=== PATIENT | male | born 1950 | race African-American/Black ===

== ENCOUNTER 2019-06-21 18:11 | Emergency (ER) | payer OTHER ==
[~2019-06-21] VITALS: Ht 152.4 cm; Wt 147.4 kg
[2019-06-21 18:47] LABS: ABSOLUTE NEUTROPHILS 7.7 thou/uL (1.4-8.2); BASOPHILS 1.3 % (0.0-2.0); EOSINOPHILS 2.1 % (0.0-3.0); HEMATOCRIT 33.3 % (42.0-52.0); HEMOGLOBIN 10.5 gm/dL (14.0-18.0); LYMPHOCYTES 22.2 % (24.0-44.0); MCH 26.8 pg (26.0-34.0); MCHC 31.6 g/dL (28.0-37.0); MCV 84.9 fL (80.0-100.0); MONOCYTES 7.4 % (1.0-8.0); RBC 3.92 mil/uL (4.50-6.00); RDW 17.1 % (10.5-14.5); WBC 11.5 thou/uL (4.0-11.0)
[2019-06-21 18:56] LABS: ANION GAP 8 mmol/L (7-16); BUN 8 mg/dL (7-18); CALCIUM 9.6 mg/dL (8.5-10.1); CHLORIDE 101 mmol/L (98-107); CO2 28 mmol/L (21-32); CREATININE 1.1 mg/dL (0.7-1.3); GLUCOSE 288 mg/dL (74-106); SODIUM 137 mmol/L (136-145)
[2019-06-21 19:02] LABS: ALBUMIN 3.1 g/dL (3.4-5.0); DIRECT BILIRUBIN < 0.1 mg/dL (<0.1-0.3); SALICYLATE < 2.8 mg/dL (2.8-20.0); SGOT 40 U/L (15-37); SGPT 20 U/L (30-65); TOTAL BILIRUBIN 0.5 mg/dL (<0.1-1.0); TOTAL PROTEIN 8.5 g/dL (6.4-8.2)
[2019-06-21 19:03] LABS: POTASSIUM 5.1 mmol/L (3.5-5.1)
[2019-06-21 19:17] LABS: PLATELET COUNT 375 thou/uL (150-400)
[2019-06-21 19:26] LABS: URINE BILIRUBIN NEGATIVE (Negative); URINE BLOOD NEGATIVE (Negative); URINE CLARITY SL CLOUDY; URINE COLOR YELLOW; URINE GLUCOSE-RANDOM* TRACE (Negative); URINE KETONES NEGATIVE (Negative); URINE NITRITE-REFLEX NEGATIVE (Negative); URINE PROTEIN (DIPSTICK) 1+ (Negative); URINE SPECIFIC GRAVITY 1.015 (1.005-1.035)
[2019-06-21 19:28] LABS: AMP/METHAMP Negative (Negative); BARBITURATES Negative (Negative); BENZODIAZEPINES Negative (Negative); COCAINE Negative (Negative); METHADONE Negative (Negative); OPIATES Negative (Negative); PCP Negative (Negative)
[2019-06-21 19:29] LABS: URINE LEUKOCYTES-REFLEX 2+ (Negative)
[2019-06-21 19:42] LABS: AMORPHOUS PHOSPHATES Moderate /LPF (None Seen); BACTERIA-REFLEX 1-9 Few /HPF (None Seen); CASTS None Seen /LPF (None Seen); CRYSTALS None Seen /LPF (None Seen); SQUAMOUS None Seen /LPF (0-3); URINE RBC None Seen /HPF (0-2)
[2019-06-21] MEDS ORDERED: KEFLEX500 M1 PO (20:19)
[2019-06-21 22:19] VITALS: BP 205/64
--- NOTE | 2019-06-23 12:16 | EKG ---
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
== END 2019-06-21 22:44 ==
LOC: ER 18:11
PROVIDERS: Emergency Medicine
DX: N39.0 Urinary tract infection, site not specified (principal); M79.605 Pain in left leg; M79.604 Pain in right leg; G89.29 Other chronic pain; I11.9 Hypertensive heart disease without heart failure; E11.40 Type 2 diabetes mellitus with diabetic neuropathy, unspecified; E78.5 Hyperlipidemia, unspecified; K21.9 Gastro-esophageal reflux disease without esophagitis; M10.9 Gout, unspecified; Z86.711 Personal history of pulmonary embolism; Z89.511 Acquired absence of right leg below knee; Z89.512 Acquired absence of left leg below knee; Z86.73 Personal history of transient ischemic attack (TIA), and cerebral infarction without residual deficits

== ENCOUNTER 2019-07-12 18:39 | Emergency (ER) | payer OTHER ==
[~2019-07-12] VITALS: Ht 177.8 cm; Wt 108.9 kg
[~2019-07-12 18:39] MED LIST: KEFLEX500 M1 PO
[2019-07-12 19:10] LABS: URINE BLOOD 1+ (Negative); URINE CLARITY CLOUDY; URINE COLOR BROWN; URINE GLUCOSE-RANDOM* TRACE (Negative); URINE KETONES TRACE (Negative); URINE PROTEIN (DIPSTICK) 3+ (Negative)
[2019-07-12 19:11] LABS: ICTOTEST (BILI CONFIRMATORY) Negative (Negative); URINE BILIRUBIN NEGATIVE (Negative); URINE LEUKOCYTES-REFLEX 2+ (Negative); URINE NITRITE-REFLEX POSITIVE (Negative)
[2019-07-12 19:19] LABS: AMORPHOUS PHOSPHATES Many /LPF (None Seen); CASTS None Seen /LPF (None Seen); SQUAMOUS None Seen /LPF (0-3); URINE RBC 3-10 Few /HPF (0-2); URINE WBC-REFLEX 6-15 Few /HPF (0-5)
[2019-07-12] MEDS ORDERED: AGGRENOX 25 MG1 EACH PO (21:25)
[2019-07-12] MEDS ORDERED: PROAIR HFA8.5 GM INH (21:26)
[2019-07-12] MEDS ORDERED: VITAMIN C500 M2 PO (21:27)
[2019-07-12] MEDS ORDERED: NORVASC10 MG PO (21:27)
[2019-07-12] MEDS ORDERED: CALMOSEPTINE O3.5 GM TOP (21:28)
[2019-07-12] MEDS ORDERED: COLACE100 MG PO (21:29)
[2019-07-12] MEDS ORDERED: CELEXA 10 MG TA10 M1 PO (21:29)
[2019-07-12] MEDS ORDERED: CARVEDILOL25 MG PO (21:29)
[2019-07-12] MEDS ORDERED: OXYCODONE HCL E10 MG PO (21:30)
[2019-07-12] MEDS ORDERED: VITAMIN B-6100 MG PO (21:31)
[2019-07-12] MEDS ORDERED: CRESTOR40 MG PO (21:32)
[2019-07-12] MEDS ORDERED: FLOMAX0.4 MG PO (21:33)
[2019-07-12] MEDS ORDERED: SENNA PLUS TAB1 EACH PO (21:33)
[2019-07-12] MEDS ORDERED: THROAT DROPS6 MG PO (21:34)
[2019-07-12] MEDS ORDERED: UNICOMPLEX M TA1 TA1 PO (21:36)
[2019-07-12] MEDS ORDERED: XALATAN2.5 ML OPHTHALMIC (21:36)
[2019-07-12] MEDS ORDERED: TYLENOL PO (21:36)
[2019-07-12] MEDS ORDERED: COSOPT OCUMETER10 M1 OPHTHALMIC (21:38)
[2019-07-12] MEDS ORDERED: CYMBALTA60 MG PO (21:38)
[2019-07-12] MEDS ORDERED: ARICEPT10 M1 PO (21:39)
[2019-07-12] MEDS ORDERED: PROSCAR 5MG TABL5 M1 PO (21:39)
[2019-07-12] MEDS ORDERED: ERGOCALCIF50000 UNIT PO (21:39)
[2019-07-12] MEDS ORDERED: LEVEMIR100 UNIT/2 SUBQ (21:41)
[2019-07-12] MEDS ORDERED: LACTULOSE10 GM/152 PO (21:41)
[2019-07-12] MEDS ORDERED: LIDOCAINE GEL TOP (21:44)
[2019-07-12] MEDS ORDERED: LINZESS145 MCG PO (21:45)
[2019-07-12] MEDS ORDERED: ZESTRIL40 MG PO (21:45)
[2019-07-12] MEDS ORDERED: LYRICA 75 MG CA75 MG PO (21:46)
[2019-07-12] MEDS ORDERED: MELATONIN5 MG SUBLING (21:46)
[2019-07-12] MEDS ORDERED: NOVOLOG100 UNIT/M SUBQ (21:47)
[2019-07-12] MEDS ORDERED: MULTIPLE VITAM1 EAC2 PO (21:47)
[2019-07-12] MEDS ORDERED: KEFLEX500 M1 PO (22:47)
[2019-07-13 00:20] VITALS: BP 160/60
== END 2019-07-12 23:05 | disposition home or self-care (01) ==
LOC: ER 18:39
PROVIDERS: Emergency Medicine
DX: N47.2 Paraphimosis (principal); E11.9 Type 2 diabetes mellitus without complications; M10.9 Gout, unspecified; E78.5 Hyperlipidemia, unspecified; E11.40 Type 2 diabetes mellitus with diabetic neuropathy, unspecified; Z86.711 Personal history of pulmonary embolism; Z86.73 Personal history of transient ischemic attack (TIA), and cerebral infarction without residual deficits; Z79.4 Long term (current) use of insulin; Z79.899 Other long term (current) drug therapy; Z79.82 Long term (current) use of aspirin

== ENCOUNTER 2019-08-30 10:20 | Inpatient (IN) | payer OTHER ==
[~2019-08-30] VITALS: Ht 162.6 cm; Wt 104.3 kg
[~2019-08-30 10:20] MED LIST changes: +AGGRENOX 25 MG1 EACH PO; +ARICEPT10 M1 PO; +CALMOSEPTINE O3.5 GM TOP; +CARVEDILOL25 MG PO; +CELEXA 10 MG TA10 M1 PO; +COLACE100 MG PO; +COSOPT OCUMETER10 M1 OPHTHALMIC; +CRESTOR40 MG PO; +CYMBALTA60 MG PO; +ERGOCALCIF50000 UNIT PO; +FLOMAX0.4 MG PO; +LACTULOSE10 GM/152 PO; +LEVEMIR100 UNIT/2 SUBQ; +LIDOCAINE GEL TOP; +LINZESS145 MCG PO; +LYRICA 75 MG CA75 MG PO; +MELATONIN5 MG PO; +MULTIPLE VITAM1 EAC2 PO; +NORVASC10 MG PO; +NOVOLOG100 UNIT/M SUBQ; +OXYCODONE HCL E10 MG PO; +PROAIR HFA8.5 GM INH; +PROSCAR 5MG TABL5 M1 PO; +SENNA PLUS TAB1 EACH PO; +THROAT DROPS6 MG PO; +TYLENOL PO; +UNICOMPLEX M TA1 TA1 PO; +VITAMIN B-6100 MG PO; +VITAMIN C500 M2 PO; +XALATAN2.5 ML OPHTHALMIC; +ZESTRIL40 MG PO
[2019-08-30 10:22] VITALS: BP 136/67
[2019-08-30 10:58] LABS: ABSOLUTE NEUTROPHILS 3.9 thou/uL (1.4-8.2); BASOPHILS 0.6 % (0.0-2.0); EOSINOPHILS 4.4 % (0.0-3.0); HEMATOCRIT 37.1 % (42.0-52.0); HEMOGLOBIN 11.5 gm/dL (14.0-18.0); LYMPHOCYTES 33.7 % (24.0-44.0); MCH 24.9 pg (26.0-34.0); MCV 80.3 fL (80.0-100.0); MONOCYTES 8.9 % (1.0-8.0); PLATELET COUNT 279 thou/uL (150-400); POLYS 52.4 % (36.0-66.0); RBC 4.62 mil/uL (4.50-6.00); RDW 16.7 % (10.5-14.5); WBC 7.5 thou/uL (4.0-11.0)
[2019-08-30 11:06] LABS: CALCIUM 8.9 mg/dL (8.5-10.1); CREATININE 1.2 mg/dL (0.7-1.3); POTASSIUM 3.3 mmol/L (3.5-5.1)
[2019-08-30 11:12] LABS: ALBUMIN 2.9 g/dL (3.4-5.0); TOTAL BILIRUBIN 0.3 mg/dL (<0.1-1.0); TOTAL PROTEIN 7.8 g/dL (6.4-8.2)
[2019-08-30 12:20] LABS: URINE BILIRUBIN NEGATIVE (Negative); URINE BLOOD NEGATIVE (Negative); URINE CLARITY CLEAR; URINE COLOR YELLOW; URINE GLUCOSE-RANDOM* 1+ (Negative); URINE KETONES NEGATIVE (Negative); URINE LEUKOCYTES-REFLEX NEGATIVE (Negative); URINE NITRITE-REFLEX NEGATIVE (Negative); URINE PROTEIN (DIPSTICK) NEGATIVE (Negative); URINE SPECIFIC GRAVITY <= 1.005 (1.005-1.035); URINE UROBILINOGEN 0.2 E.U./dl (0.2-1.0)
[2019-08-30 13:53] VITALS: BP 139/63
[2019-08-30 14:59] VITALS: BP 146/69
[2019-08-30 15:55] VITALS: BP 149/77
--- NOTE | 2019-08-30 18:30 | NUR ---
PT RECEIVED TO RM 458 PER CART FROM THER ER W/ SOME ABD PAIN. PT ASSESSED AND ADMITTED TO UNIT. PT STARTED ON CLEAR LIQUIDS W/O NAUSEA. HAVING LIQUID BROWN STOOLS. CONSULT DONE BY GI BRICK CLEANER SHORTLY AFTER ADMISSION. MEDICINE GIVEN FOR C/O PAIN W/ SOME RELIEF.
[2019-08-31 05:55] LABS: HEMATOCRIT 35.5 % (42.0-52.0); MCH 25.3 pg (26.0-34.0); MCV 81.6 fL (80.0-100.0); RBC 4.34 mil/uL (4.50-6.00); RDW 16.6 % (10.5-14.5); WBC 6.8 thou/uL (4.0-11.0)
--- NOTE | 2019-08-31 06:00 | NUR ---
Pt. rested quietly at intervals during the night when checked on during frequent rounds. He c/o abdominal pain and was given pain meds (see emar) with some relief noted. No c/o nausea. Bed alarm is on.
[2019-08-31 06:06] LABS: CALCIUM 8.3 mg/dL (8.5-10.1)
[2019-08-31 07:45] VITALS: BP 132/62
[2019-08-31 11:49] VITALS: BP 142/63
[2019-08-31 16:30] VITALS: BP 115/67
[2019-08-31 17:00] VITALS: BP 137/71
--- NOTE | 2019-08-31 17:01 | NUR ---
Assumed pt care this am, abdomen is significantly distended. KUB done this am, seen by GI, goal is to have a bm myralax and suppository given. Consent for colonoscopy done, aware to be NPO post midnight tonight.l ON full liquid diet from clears, tolerated well. Bed bath given this am. Colonoscopy perep endorsed to the SS nurse pt was mo0ved to 405. POC followed, VS stable no signs or verbalizations of distress have been noted. Pt is now is 405
--- NOTE | 2019-08-31 18:19 | NUR ---
Case opened to follow for dc planning. Chart reviewed and case discussed with the care team. 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 He is a bilat amputee and is w/c bound. He is his own reponsible alliance party. Next of kin contacts are his brother and dtr if needed. The [place] liason confirmed they are holding his bed and can accept for readmission when ready. Pt transfered to 4N this afternoon. GI consulting for colitis. Will have the dc supply planner fax his H/P and updated tomorrow. DC timeframe is uncertain pending his progress. [facility] staff updated. Cm role introduced to the pt at bedside.
--- NOTE | 2019-08-31 19:13 | NUR ---
PT ARRIVED ON UNIT, AOX4, VSS. PT TOLERATING LIQUID, ENCOURAGED TO DRINK MIRALAX. PT IV IN RIGHT AC IS PATENT WITH FLUIDS RUNNING. FALL PRECAUTIONS IN PLACE, CALL LIGHT/PERSONAL BELONGINGS IN REACH. WILL CONTINUE TO MONITOR.
[2019-08-31 19:51] VITALS: BP 146/72
[2019-08-31 20:37] VITALS: BP 146/72
--- NOTE | 2019-09-01 04:48 | NUR ---
ASSUMED CARE OF PATIENT AT SHIFT CHANGE. ASSESSMENT CHARTED. MEDICATIONS GIVEN PER OCT. PATIENT IS A&OX4, VSS, BUT C/O PAIN ON HIS ABDOMEN AND LEGS AT 10/10. PRN PAIN MEDS GIVEN W ASSIST FROM MARILU WAN. ABDOMEN STILL DISTENDED AND BOWEL SOUNDS ARE HYPERACTIVE; CURRENTLY DRINKING MIRALAX BOWEL PREP. PATIENT ON BEDREST THIS NIGHT SINCE HE WILL BE HAVING MANY BOWEL MOVEMENTS; LOGROLLS AND HELPS WITH TURNING. PATIENT SEEMS A BIT UPSET FOR HAVING TO BE NPO AFTER MIDNINGT BUT IS COMPLIANT. PATIENT IS TO HAVE A COLONOSCOPY THIS AM 09/01/19. PATIENTS PAIN LEVEL IS FREQUENTLY MONITORED. DENIES ANY OTHER NEEDS AT THIS TIME. FALL PRECAUTIONS IN PLACE, WILL CONTINUE TO MONITOR AND FOLLOW POC
[2019-09-01 06:02] LABS: HEMATOCRIT 33.8 % (42.0-52.0); HEMOGLOBIN 10.3 gm/dL (14.0-18.0); MCH 25.2 pg (26.0-34.0); MCHC 30.6 g/dL (28.0-37.0); MCV 82.3 fL (80.0-100.0); RBC 4.11 mil/uL (4.50-6.00); RDW 16.6 % (10.5-14.5); WBC 6.6 thou/uL (4.0-11.0)
[2019-09-01 06:19] LABS: CALCIUM 8.1 mg/dL (8.5-10.1); CREATININE 0.9 mg/dL (0.7-1.3); POTASSIUM 3.6 mmol/L (3.5-5.1)
[2019-09-01 07:42] VITALS: BP 157/68
--- NOTE | 2019-09-01 12:54 | NUR ---
FAXED CLINICAL UPDATES TO [facility] [phone]; [phone]. NOTED THAT POSSIBLE DC THIS WEEKEND. WILL FOLLOW UP WITH DIANNA THAT SHE RECEIVED.
[2019-09-01 16:04] VITALS: BP 192/88
--- NOTE | 2019-09-01 17:32 | NUR ---
If patient to dc this weekend to facility to call [phone] to [facility]. Call family, make chart copy fax orders to [phone].
[2019-09-01 18:52] VITALS: BP 164/74
--- NOTE | 2019-09-01 19:53 | NUR ---
ASSUMED CARE OF PATIENT AT 0715, PATIENT ALERT AND ORIENTED X 4. PATIENT ON BEDREST, ANGEL. BKA'S. TURN Q2HRS, SLIGHT REDNESS TO LEFT BUTTOCKS. C/O ABDOMEN PAIN, MORPHINE 2MG IV AND OXYCONTIN 10 MG PO GIVEN. NO C/O NAUSEA THIS SHIFT. PATIENT WAS NPO MOST OF SHIFT FOR COLONOSCOPY, DR BLOOD HERE THIS AFTERNOON, CHANGED FROM NPO TO FULL LIQUIDS FOR DINNER. PAIENT WENT DOWN FOR KUB, STOOL STILL NOTED. RIGHT AC IV IN PLACE, NS AT 75CC/HR, RECEIVED 2 IV ANTIBIOTICS THIS SHIFT. PATIENT HAD 4 LARGE LOOSE STOOLS THIS SHIFT. BLOOD SUGAR MONITORING ORDERED, S/S INSULIN GIVEN PER BLOOD SUGAR. COLONOSCOPY SCHEDULED FOR WEDNESDAY. WILL CONTINUE TO MONITOR.
[2019-09-01 22:12] VITALS: BP 135/56
--- NOTE | 2019-09-02 02:04 | NUR ---
ASSUMED CARE OF PATIENT AT APPROX. 1945. ASSESSMENT CHARTED. MEDICATIONS GIVEN PER EMAR. PATIENT IS A&OX4. VITAL SIGNS ARE STABLE; EARLIER TODAY BP WAS ELEVATED HOWEVER IT IS STABLE AGAIN. PATIENT VOICES PAIN 10/10 ON ABDOMEN; PRN PAIN MEDS WERE GIVEN WITH ASSIST FROM TERRI MICHEL. PATIENT IS A BILATERAL AMPUTEE AND IS ON BEDREST WE DO NOT HAVE A SLIDING BOARD. PATIENT HAS BEEN USING URINAL TO VOID AND IS INCONTINENT OF BOWELS. PATIENT HAD A BOWEL PREP ON 08/31 AND CONTINUES TO HAVE BROWN, LOOSE STOOLS. KUB RESULTS SUGGESTED POSTPONING COLONOSCOPY TO MONDAY 09/04. PATIENT HAS SOME EXCORIATION ON HIS RIGHT BUTTOCK; BARRIER CREAM APPLIED NEEDED. PATIENT IS BEING TURNED Q2HRS. PATIENTS DIET ORDER IS UNCLEAR; NPO STATUS ORDER ACTIVE NOW; CLEAR LIQUIDS ACTIVE ON 09/03. FALL PRECAUTIONS IN PLACE. WILL CONTINUE TO MONITOR AND FOLLOW PLAN OF CARE
--- NOTE | 2019-09-02 04:29 | NUR ---
THIS NURSE AGREES WITH ASSESSMENT AND NOTES ON THIS PATIENT BY TEXTILE DYER. PATIENT WILL BE ON FULL LIQUID DIET THIS WEEKEND WITH COLONOSCOPY ON WEDNESDAY. PER DR. BLOOD.
[2019-09-02 07:10] VITALS: BP 183/82
[2019-09-02 10:44] VITALS: BP 149/81
--- NOTE | 2019-09-02 12:00 | NUR ---
SW reviewed chart and spoke with nursing. No weekend discharge planned. Pt to have colonoscopy on Wednesday. Plan is for pt to return to [facility] when medically stable. KAYLIE is following to assist as needed with discharge planning.
[2019-09-02 15:55] VITALS: BP 128/62
--- NOTE | 2019-09-02 17:23 | NUR ---
PT IS AOX4, VSS, PAIN ANALGESIC GIVEN SCHEDULED FOR GENERALIZED ABDOMINAL PAIN. PT TOLERATING CLEAR LIQUID DIET, IV PATENT WITH FLUIDS RUNNING, BARRIER CREAM APPLIED TO EXCORIATION ON RIGHT SIDE OF BUTTOCK. PT TURNED Q 2HR. BS MONITORED AC/HS AND S/S INSULIN RECEIVED ORDERED. FALL PRECAUTIONS IN PLACE/CALL LIGHT/PERSONAL ITEMS IN REACH. WILL CONTINUE TO MONITOR.
[2019-09-02 21:00] VITALS: BP 134/68
--- NOTE | 2019-09-03 03:29 | NUR ---
ASSUMED CARE OF PATIENT AT SHIFT CHANGE. ASSESSMENT CHARTED. MEDICATIONS GIVEN PER EMAR. PATIENT IS A&OX4 BUT TIRED TODAY. HE IS IN AND OUT OF SLEEP BUT ALERT ENOUGH TO TAKE HIS MEDS AND VOICE PAIN. VITAL SIGNS ARE STABLE. PATIENT VOICES PAIN 10/10 ON THE NUMERIC SCALE. DAY RN REPORTS HIS PAIN HAS NOT GONE BELOW A 9/10. PATIENTS ABDOMEN IS STILL DISTENDED BUT LESS THAN LAST NIGHT. PATIENT HAD A BM DURING THE DAY BUT IS YET TO HAVE ONE TONIGHT. BOWEL SOUNDS REMAIN ACTIVE. PATIENT DID REFUSE HIS MIRALAX AGAIN BECAUSE OF LOOSE STOOLS EARLIER DURING THE DAY. ABX THX AND FLUIDS RUNNING THIS SHIFT; IV INTACT AND PATENT. PATIENT IS TO BE TURNED Q2 HRS BUT STATES TOO MUCH PAIN TO BE TURNED THAT OFTEN. PATIENT REMAINS AFEBRILE W NO S/S OF INFECTION. FALL PRECAUTIONS REMAIN IN PLACE AND PATIENT CALLS OUT APPROPRIATELY. PLAN IS FOR BOWEL PREP STARTING LATER TODAY 09/03 AND COLONOSCOPY ON 09/04; CURRENTLY ON CLEAR LIQUIDS. WILL CONTINUE TO MONITOR AND FOLLOW PLAN OF CARE.
[2019-09-03 05:02] LABS: HEMATOCRIT 37.4 % (42.0-52.0); HEMOGLOBIN 11.8 gm/dL (14.0-18.0); MCH 25.3 pg (26.0-34.0); MCHC 31.4 g/dL (28.0-37.0); MCV 80.7 fL (80.0-100.0); RBC 4.64 mil/uL (4.50-6.00); RDW 16.8 % (10.5-14.5); WBC 6.8 thou/uL (4.0-11.0)
--- NOTE | 2019-09-03 05:11 | NUR ---
THIS NURSE AGREES WITH ASSESSMENT AND NOTES BY PRESIDING STEWARD ON THIS PATIENT.
[2019-09-03 05:16] LABS: CALCIUM 8.8 mg/dL (8.5-10.1); CREATININE 0.9 mg/dL (0.7-1.3); POTASSIUM 3.2 mmol/L (3.5-5.1)
[2019-09-03 07:18] VITALS: BP 163/72
[2019-09-03 14:41] VITALS: BP 140/55
--- NOTE | 2019-09-03 18:41 | NUR ---
PT ASSESSED AT START OF SHIFT. PLAN FOR COLONOSCOPY WEDNESDAY. HAS BEEN HAVING THICK BROWN STOOL THIS AFTERNOON. MIRALAX BOWEL PREP IN PROGRESS. PT EXPRESSING DESIRE TO WEAN OFF PAIN MED TO HELP HIS BOWELS. HE REFUSED HIS AFTERNOON DOSE OF OXYCONTIN.
[2019-09-03 20:10] VITALS: BP 160/73
--- NOTE | 2019-09-04 04:29 | NUR ---
PATIENT ALERT AND ORIENTED X4 WITH SOME FORGETFULNESS. COOPERATIVE WITH CARE. INCONTINENT OF BOWEL AND VOIDING PER URINAL. PATIENT HAS BEEN NPO SINCE 09/03/2019 AT 2359 FOR COLONOSCOPY TODAY. PATIENT DRANK ALL OF HIS PREP DRINK AND HAS HAD SEVERAL STOOLS - RUNNING VERY LIGHT BROWN LIQUID STOOL THAT SHOULD BE SUFFICIENT FOR COLONOSCOPY. IVF INFUSING W/O COMPLICATION. SCHEDULED PAIN MEDICATION GIVEN. RESTING QUIETLY.
[2019-09-04 08:31] VITALS: BP 154/70
--- NOTE | 2019-09-04 11:54 | NUR ---
SW reviewed chart and spoke with nursing and attending physician. Pt is currently off the unit having colonoscopy. Plan is for pt to discharge back to [facility] when medically stable. SW updated [place] post-acute liaison. Clinical updates to be faxed to facility for review. KAYLIE is following to assist as needed with discharge planning.
[2019-09-04 17:30] VITALS: BP 146/70
--- NOTE | 2019-09-04 19:48 | NUR ---
PT WENT FOR COLONOSCOPY AND HAD 2 POLYPS REMOVED...NO STOOLS THIS SHIFT...PLANS TO D/C TOMORROW
[2019-09-04 20:29] VITALS: BP 145/68
--- NOTE | 2019-09-05 05:04 | NUR ---
ASSUMED PT CARE APPROXIMATELY 191. PT IS ALERT AND ORIENTED. PT HAS A RIGHT AC, NORMAL SALINE RUNNING AT 75 MLS / HR. PT REFUSED THE DOCUSATE SENNA, POLYETHYLENE GLYCOL AND THE OCYCONTIN. PT STATES THAT HE DOES NOT WANT ANYTHING THAT WILL MAKE HIM HACE A BOWEL MOVEMENT. PT ANSWERS EVERYTHING WITH SHORT ANSWERS. PT WAKES UP EVERY TIME I CHECK IN ON HIM. PT SEEMS RESTLESS. WILL CONTINUE TO MONITOR.
[2019-09-05 07:25] VITALS: BP 187/71
[2019-09-05 09:43] VITALS: BP 187/71
[2019-09-05] MEDS ORDERED: FLAGYL500 M1 PO (13:53)
[2019-09-05] MEDS ORDERED: CIPRO500 M1 PO (13:54)
--- NOTE | 2019-09-05 14:15 | NUR ---
DISCHARGE NOTE: KAYLIE reviewed chart and spoke with nursing and attending physician. Pt is medically stable to return to [facility] today. Pt will return using his skilled benefit. SW notified [place] post-acute liaison, who states that they are able to accept pt back. Transportation scheduled for 2645-1505 per facility's arrangements. KAYLIE met with pt at bedside to provide update. Pt is aware and in agreement with discharge plan. Chart copy ordered. Nursing to call report. No additional SW needs identified at this time, but is available to assist should needs arise. [facility]--
--- NOTE | 2019-09-05 15:30 | NUR ---
DISCHARGE ORDERS COMPLETED AND FAXED TO [facility] ADMISSIONS. CALL RECEIVED FROM MONICA ORTA, PEARL PELLER. [facility]SP[facility] ARRANGED FOR 1630 HOURS. CHART COPY COMPLETED. UNIT RN NOTIFIED.
--- NOTE | 2019-09-05 15:41 | NUR ---
ASSUMED CARE OF THE PATIENT AT 0715, PATIENT ALERT AND ORIENTED X 4. PATIENT ON BEDREST, BILATERAL BKA'S. TURN EVERY 2 HOURS. PATIENT INCONT. OS STOOL, BARRIER CREAM APPLIED TO BUTTOCKS. VOIDS PER URINAL. RIGHT AC IV WITH NS AT 75CC/HR. BLOOD SUGAR AT LUNCH 179, RECEIVED 3 UNITS OF LISPRO. RIGHT SLIGHTLY SWOLLEN, THIS RN NOTIFIED DR KRYSTLE GUARDADO TO STOP IV FLUIDS. PATIENT WILL DISCHARGE BACK TO [facility] THIS AFTERNOON. RIGHT AC IV REMOVED PRIOR TO DISCHARGE. PATIENT REFUSED OXYCONTIN THIS AFTERNOON. TRANSPORT HERE WITH [facility]. SECURITY CALLED PATIENT HAD MONEY GIVEN TO THEM AT ADMISSION/40 DOLLARS. ALL DISCHARGE PAPERWORK AND ALL PERSONAL BELONGINGS SENT WITH THE PATIENT. REPORT GIVEN TO EMILY/NATHAN.
--- NOTE | 2019-09-05 16:06 | PATH ---
[facility] [address] [place] [address] PATHOLOGY RPT PROCEDURE Name: CANELO FELIX Room #: 405-P DIS IN M.R.#: [id number] Admission: 08/30/19 Date of : 48 Discharge: 09/05/19 Report #: [id number] Path Case #: [id number] [facility] Accession Number: [id number] . 01 Material submitted: . colon - POLYP AT MID ASCENDING COLON X2. Modifiers: mid, ascending . 01 Clinical history: . None provided . 02 Diagnosis: Polyp x2, at mid ascending colon, endoscopic biopsy: - Tubulovillous adenoma. - Negative for high-grade dysplasia. (IUV:pit 09/05/2019) QTP 09/05/2019 1351 Local . 02 Electronically signed: . Tisha Henning MD, Pathologist NPI- [id number] . 01 Gross description: . The specimen is received in formalin, labeled "Canelo Linn, polyp at mid ascending colon x2". Received are seven segments of pale delcid soft tissue ranging in size from 0.2 to 0.7 cm in maximum dimensions. The specimen is submitted entirely in cassette A1. (CAA; 09/04/2019) QAC/QAC 09/04/2019 1728 Local . 02 Pathologist provided ICD-10: D12.2 . 02 CPT . 248085 Specimen Comment: A courtesy copy of this report has been sent to [phone], [phone]- Specimen Comment: [phone], Specimen Comment: Report sent to ,DR ROBERTSON / DR DALTON Performed at: [address], [place] [id number] MD Yunior Nagel MD Phone: [phone] Performed at: [address] [id number] MD Tisha Henning MD Phone: [phone]
--- NOTE | 2019-09-05 16:27 | P ---
[facility] [place] [address] PROCEDURE REPORT Name: DENISE FELIX Room #: 405-P [facility] IN M.R.#: [id number] Admission: 08/30/19 Attend Phys: Brando Valero MD Discharge: 09/05/19 Date of : 48 Report #: [id number] THIS REPORT FOR: //name// CC: Brandon Valero INPATIENT COLONOSCOPY REPORT BRIEF HISTORY: The patient is a 69-year-old male who was admitted with left lower quadrant abdominal pain. CT shows thickening of the sigmoid colon. He also has inflammatory changes in the rectum. PREOPERATIVE DIAGNOSIS: Abnormal CT of the colon. POSTOPERATIVE DIAGNOSES: 1. Mid ascending colon polyps x 2. 2. Retained hemostatic clip, cecum. 3. Mild diffuse melanosis coli. 4. Diffusely dilated redundant colon. MEDICATIONS: Deep sedation with propofol per Anesthesia. SPECIMEN: Polyps x 2, mid ascending colon. ESTIMATED BLOOD LOSS: 3 mL. PROCEDURE: Colonoscopy to cecum and terminal ileum with snare polypectomy. FINDINGS: Prior to propofol sedation, procedure of colonoscopy discussed with the patient as well as potential risks and its complications. He indicates he understands and desires to proceed. DESCRIPTION OF PROCEDURE: With the patient in left lateral decubitus position, digital examination was completed, which revealed no abnormalities. Subsequently, the Monitor Backlinks video colonoscope was introduced in the rectum, advanced under direct vision to the cecum. Done with some difficulty as a tortuous redundant and dilated colon consistent with chronic constipation. The cecum was reached, identified by the ileocecal valve and the appendiceal orifice. I was also able to advance the scope into the distal segment of terminal ileum, which was inspected and noted to be unremarkable. No inflammatory changes were seen. At that point, the scope was slowly withdrawn and careful circumferential views were obtained. There were some limitations of prep as there was retained liquidy material in the proximal colon, which had to be irrigated and suctioned away. In addition, there was a lot of spasticity and more so that the patient was not able to hold on to air very well and it was difficult to keep a fully distended colon. It was also of interest to note that in the cecum, hemostatic clip was seen, likely placed at his last colonoscopy. The surrounding mucosa [facility] [address] [place] [address] PROCEDURE REPORT Name: DENISE FELIX Room #: 405-P DIS IN M.R.#: [id number] Admission: 08/30/19 Attend Phys: Brando Valero MD Discharge: 09/05/19 Date of : 48 Report #: [id number] was benign. At that point, the scope was slowly withdrawn and careful circumferential views were obtained. In the mid ascending colon, 2 polyps were seen, a diminutive polyp was seen in the mid ascending colon, removed with biopsy forceps. In addition, a fairly flat nodular-appearing polypoid lesion was seen. It was about 6 x 10 mm, removed by hot snare polypectomy and recovered. The scope was withdrawn through the remainder of the colon and he was noted to have a pattern of mild melanosis throughout the entire colon. It is noted he does have issues with chronic constipation. No additional abnormalities were noted. Scope was withdrawn in the rectum, no abnormalities were seen. Upon retroflexion, no abnormalities were seen. Scope was withdrawn. The patient tolerated the procedure well. DISPOSITION: The patient with thickening of the sigmoid colon on CT. Other than mild melanosis, the colonic mucosa appears normal. No inflammatory changes were seen. No mass lesions were seen. We will follow up on the pathology. The polyps have an adenomatous appearance. For that reason as well as some limitations with prep and procedure in particular related to difficulty keeping the colon distended, suggest he return in 3 years for followup colonoscopy. As for the CT abnormalities, no lesions were found to explain the CT findings. <ELECTRONICALLY SIGNED> By: Mauro Garrido MD 09/05/19 1627 0953 1142 Mauro Garrido MD /nt
== END 2019-09-05 16:04 | DRG 372 ==
LOC: ER 10:20 → 4W 12:43 → EROBS 12:43 → 4W 14:59 → 4N 08-31 17:07
PROVIDERS: Emergency Medicine; ADMIT Hospitalist
PROC: 0DBK8ZZ Excision of Ascending Colon, Via Natural or Artificial Opening Endoscopic (ICD-10-PCS; principal; 2019-09-04)
DX: A04.9 Bacterial intestinal infection, unspecified (principal); E46 Unspecified protein-calorie malnutrition; K57.92 Diverticulitis of intestine, part unspecified, without perforation or abscess without bleeding; K59.39 Other megacolon; N40.0 Benign prostatic hyperplasia without lower urinary tract symptoms; G30.9 Alzheimer's disease, unspecified; M10.9 Gout, unspecified; F02.80 Dementia in other diseases classified elsewhere, unspecified severity, without behavioral disturbance, psychotic disturbance, mood disturbance, and anxiety; I10 Essential (primary) hypertension; J44.9 Chronic obstructive pulmonary disease, unspecified; E11.51 Type 2 diabetes mellitus with diabetic peripheral angiopathy without gangrene; K59.09 Other constipation; E11.43 Type 2 diabetes mellitus with diabetic autonomic (poly)neuropathy; K63.5 Polyp of colon; K31.84 Gastroparesis; G47.00 Insomnia, unspecified; E11.42 Type 2 diabetes mellitus with diabetic polyneuropathy; I25.10 Atherosclerotic heart disease of native coronary artery without angina pectoris; E78.5 Hyperlipidemia, unspecified; Z86.73 Personal history of transient ischemic attack (TIA), and cerebral infarction without residual deficits; Z79.82 Long term (current) use of aspirin; Z79.51 Long term (current) use of inhaled steroids; Z79.899 Other long term (current) drug therapy; Z79.4 Long term (current) use of insulin; Z86.711 Personal history of pulmonary embolism; Z68.39 Body mass index [BMI] 39.0-39.9, adult; Z89.512 Acquired absence of left leg below knee; Z89.611 Acquired absence of right leg above knee; Z99.3 Dependence on wheelchair; I48.91 Unspecified atrial fibrillation
CPT/HCPCS: 10040; 10091; 62110; 62900; 70005

== ENCOUNTER 2019-09-15 15:04 | Inpatient (IN) | payer OTHER ==
[~2019-09-15] VITALS: Ht 177.8 cm; Wt 94.9 kg
--- NOTE | ~2019-09-15 | EKG ---
[facility] [place] [address] ELECTROCARDIOGRAM REPORT Name: DENISE FELIX Room #: PRE M.R.#: [id number] Admission: Attend Phys: Discharge: Date of : 48 Report #: [id number] THIS REPORT FOR: cc: Brandon Montiel James D. 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 : 1950 Requested By: John uAgustin Order Number: [id number] MD: Measurements Intervals [place] Rate: 77 P: 74 OH: 220 QRS: -20 QRSD: 95 T: 79 QT: 400 QTc: 453 Interpretive Statements Sinus rhythm Prolonged OH interval Left ventricular hypertrophy Inferior infarct, old Anterior Q waves, possibly due to LVH Compared to ECG 06/21/2019 18:48:14 First degree AV block now present Myocardial infarct finding now present Q waves now present Early repolarization no longer present [email or web address] By: 1544 1544 Epiphany Epiphany, [place] /EPI
[2019-09-15 15:04] VITALS: BP 133/52
[~2019-09-15 15:04] MED LIST changes: +CIPRO500 M1 PO; +FLAGYL500 M1 PO
[2019-09-15 15:45] LABS: ABSOLUTE NEUTROPHILS 6.5 thou/uL (1.4-8.2); BASOPHILS 0.7 % (0.0-2.0); EOSINOPHILS 2.3 % (0.0-3.0); HEMATOCRIT 35.8 % (42.0-52.0); HEMOGLOBIN 11.3 gm/dL (14.0-18.0); LYMPHOCYTES 26.6 % (24.0-44.0); MCH 25.2 pg (26.0-34.0); MCHC 31.7 g/dL (28.0-37.0); MCV 79.4 fL (80.0-100.0); MONOCYTES 9.9 % (1.0-8.0); PLATELET COUNT 364 thou/uL (150-400); POLYS 60.5 % (36.0-66.0); RBC 4.51 mil/uL (4.50-6.00); RDW 17.4 % (10.5-14.5); WBC 10.7 thou/uL (4.0-11.0)
[2019-09-15 15:47] LABS: CALCIUM 8.8 mg/dL (8.5-10.1); CREATININE 2.2 mg/dL (0.7-1.3); POTASSIUM 3.8 mmol/L (3.5-5.1)
[2019-09-15 15:51] LABS: ALBUMIN 3.2 g/dL (3.4-5.0); TOTAL BILIRUBIN 0.5 mg/dL (<0.1-1.0); TOTAL PROTEIN 8.4 g/dL (6.4-8.2)
[2019-09-15 17:26] LABS: URINE BILIRUBIN NEGATIVE (Negative); URINE BLOOD 2+ (Negative); URINE CLARITY CLEAR; URINE COLOR YELLOW; URINE GLUCOSE-RANDOM* NEGATIVE (Negative); URINE KETONES NEGATIVE (Negative); URINE LEUKOCYTES-REFLEX NEGATIVE (Negative); URINE NITRITE-REFLEX NEGATIVE (Negative); URINE PROTEIN (DIPSTICK) NEGATIVE (Negative); URINE UROBILINOGEN 0.2 E.U./dl (0.2-1.0)
[2019-09-15 17:40] LABS: MUCUS 4-6 Moderate strn/LPF (None Seen); SQUAMOUS >10 Many /LPF (0-3)
[2019-09-15 17:41] LABS: CASTS None Seen /LPF (None Seen)
[2019-09-15 17:42] LABS: URINE WBC-REFLEX 0-5 Rare /HPF (0-5)
[2019-09-15 17:43] LABS: BACTERIA-REFLEX 1-9 Few /HPF (None Seen); URINE RBC 3-10 Few /HPF (0-2)
[2019-09-15 17:50] LABS: CALCIUM OXALATE 0-3 Few /LPF (None Seen)
[2019-09-15 20:41] VITALS: BP 140/98
[2019-09-15 20:42] VITALS: BP 140/98
--- NOTE | 2019-09-15 20:42 | NUR ---
HAND OFF TOOL SENT TO 3W
[2019-09-15 20:57] VITALS: BP 125/59; BP 140/98
[2019-09-15 21:30] VITALS: BP 177/81
[2019-09-16 00:05] VITALS: BP 169/83
[2019-09-16 04:10] VITALS: BP 157/77
--- NOTE | 2019-09-16 05:20 | NUR ---
RECEIVED REPORT FROM ER NURSE. PT ARRIVED TO UNIT AROUND 2119. ADMISSION HX AND ASSESSMENT COMPLETED CHARTED. NIH Q4H. PT IS UNABLE TO CORRECTLY STATE THE MONTH AND HAS SOME CONFUSION. HE HAS MILD EXPRESSIVE APHASIA BUT SPEECH IS CLEAR. Q2H TURN TO PREVENT SKIN BREAKDOWN. BLANCHABLE REDNESS TO BILATERAL BUTTOCKS - BARRIER CREAM APPLIED. FALL PRECAUTIONS IN PLACE. PROGRESSING SLOWLY TOWARD POC GOALS. WILL CONTINUE TO MONITOR FURTHER.
[2019-09-16 05:38] LABS: HEMATOCRIT 34.5 % (42.0-52.0); HEMOGLOBIN 10.8 gm/dL (14.0-18.0); MCH 25.1 pg (26.0-34.0); MCHC 31.3 g/dL (28.0-37.0); MCV 80.1 fL (80.0-100.0); RBC 4.3 mil/uL (4.50-6.00); RDW 17.6 % (10.5-14.5); WBC 9.6 thou/uL (4.0-11.0)
[2019-09-16 05:57] LABS: BUN 16 mg/dL (7-18); CALCIUM 8.5 mg/dL (8.5-10.1); CHLORIDE 105 mmol/L (98-107); CHOLESTEROL 93 mg/dL (<200); CO2 28 mmol/L (21-32); GLUCOSE 156 mg/dL (74-106); HDL CHOLESTEROL 28 mg/dL (>40); LDL CHOLESTEROL 49 mg/dL (<100); POTASSIUM 3.8 mmol/L (3.5-5.1); TC:HDL 3.3 Ratio (Not establshd); TRIGLYCERIDE 82 mg/dL (<150); VLDL 16 mg/dL (<40)
[2019-09-16 05:58] LABS: ANION GAP 7 mmol/L (7-16); CREATININE 1.2 mg/dL (0.7-1.3); SERUM ASSESSMENT Clear; SODIUM 140 mmol/L (136-145)
[2019-09-16 07:33] VITALS: BP 146/61
[2019-09-16 11:13] VITALS: BP 145/66
--- NOTE | 2019-09-16 13:07 | NUR ---
pt's assessment has done, pt is A&OX3, PT is forgetful , pt stars eating and drinking , pt's vs and bs are stable, pt's ABD pain has improved, pt has small BM today, pt still has L side weakness (old), but no new s/s of stroke, pt denies N/V and pain at this time.
[2019-09-16 15:26] VITALS: BP 138/82
--- NOTE | 2019-09-16 18:17 | NUR ---
pt has 3 times BM today,pt was constipation, pt 's pain nedications have DC.PT denies pain and n/v at this time.
[2019-09-16 19:27] VITALS: BP 158/74
[2019-09-17 02:06] LABS: GLYCOHEMOGLOBIN (HGB A1C) 9.1 % (4.8-5.6)
[2019-09-17 03:08] VITALS: BP 163/67
--- NOTE | 2019-09-17 03:10 | NUR ---
Patient making progress towards outcome goals. Vital signs and rhythm stable. Incontinent of stools. IVfluids infusing. High fall risks, fall precautions in place. Uses call light appropriately for needs.
[2019-09-17 07:16] VITALS: BP 163/66
[2019-09-17 15:39] VITALS: BP 152/63
[2019-09-17 19:09] VITALS: BP 155/65
--- NOTE | 2019-09-17 19:18 | NUR ---
PT is A&OX3, PT'vs are stable, pt denies pain and n/v today, pt will have haed VONDA tomorrow.
--- NOTE | 2019-09-18 03:31 | NUR ---
Patient progressing well towards outcome goals. Vital signs and rhythm stable. Neuro stable. High fall risks, fall precautions in place. Uses call light appropriately for needs.
[2019-09-18 04:21] VITALS: BP 154/62
[2019-09-18 07:28] VITALS: BP 173/69
[2019-09-18] MEDS ORDERED: PANTOPRAZOLE SO40 M1 PO (14:17)
[2019-09-18] MEDS ORDERED: HYDROCODON-ACE1 EAC7 PO (14:17)
[2019-09-18] MEDS ORDERED: SENNA PLUS TAB1 EACH PO (14:22)
[2019-09-18] MEDS ORDERED: ADULT LOW DOSE81 MG PO (14:22)
[2019-09-18] MEDS ORDERED: MIRALAX119 GM PO (14:38)
--- NOTE | 2019-09-18 14:49 | NUR ---
PATIENT ADMITTED FROM [facility]. DISCHARGE ORDERS COMPLETED. PATIENT RETURNING TO [facility] SKILLED UNIT. DISCHARGE ORDERS AND SUMMARY FAXED TO [facility]. YOVANI TO ARRANGE [facility] TRANSPORT FOR [id number] HOURS. CALL PLACED TO DAUGHTER MARCE, NOTIFIED OF DISCHARGE. MARCE ACKNOWLEDGED UNDERSTANDING. CALL PLACED TO CLIVE RUDD, CONTACT NUMBER IS NOT A WORKING NUMBER AT THIS TIME. CHART COMPLETED PER DRAFTER SEISMOGRAPH. UNIT NOTIFIED OF DISCHARGE AND TRANSPORTATION TIME.
--- NOTE | 2019-09-18 15:32 | NUR ---
INITIAL ASSESSMENT/DISCHARGE NOTE: Received consult due to pt being a [facility] resident. Pt with hx of bilateral LE amputations. Pt with hx of CVA. Pt to have MRI today. MRI completed and pt is medically stable to return to [facility] today. SW met with pt at bedside to provide update and discuss discharge. Introduced role of SW. Pt is alert/orientated. Pt is normally wheelchair bound at the facility. Per pt, they sometimes use the bhumi lift to transfer pt. Pt is agreeable with returning to [place] today. assortment planner coordinated discharge plan and notified family. Pt to be transported via stretcher van around [id number] per facility's arrangements. Chart copy requested. Nursing to call report. No additional SW needs identified at this time, but is available to assist should needs arise.
[2019-09-18 16:06] VITALS: BP 175/72
[2019-09-18 17:25] VITALS: BP 175/72
--- NOTE | 2019-09-18 18:35 | NUR ---
pt is A&OX3, PT'ABD pain and constipation have improved, pt's VS and BS are stable, PT does not have new s/s of stroke , MRI results show negative for stroke, RN received order to DC to SNF , RN has giving report, pt was DC to SNF at 1700pm.
== END 2019-09-18 17:30 | DRG 64 ==
LOC: ER 15:04 → 3W 19:09 → EROBS 19:09 → 3W 21:13
PROVIDERS: Emergency Medicine; Nurse Practitioner Family; ADMIT Internal Medicine
DX: I63.9 Cerebral infarction, unspecified (principal); N17.0 Acute kidney failure with tubular necrosis; N13.9 Obstructive and reflux uropathy, unspecified; N40.0 Benign prostatic hyperplasia without lower urinary tract symptoms; I87.2 Venous insufficiency (chronic) (peripheral); E78.5 Hyperlipidemia, unspecified; M10.9 Gout, unspecified; K59.03 Drug induced constipation; T40.605A Adverse effect of unspecified narcotics, initial encounter; E11.22 Type 2 diabetes mellitus with diabetic chronic kidney disease; I12.9 Hypertensive chronic kidney disease with stage 1 through stage 4 chronic kidney disease, or unspecified chronic kidney disease; I25.10 Atherosclerotic heart disease of native coronary artery without angina pectoris; G30.9 Alzheimer's disease, unspecified; E11.40 Type 2 diabetes mellitus with diabetic neuropathy, unspecified; N18.9 Chronic kidney disease, unspecified; F02.80 Dementia in other diseases classified elsewhere, unspecified severity, without behavioral disturbance, psychotic disturbance, mood disturbance, and anxiety; Z89.611 Acquired absence of right leg above knee; Z89.512 Acquired absence of left leg below knee; Z79.01 Long term (current) use of anticoagulants; Z79.82 Long term (current) use of aspirin; Z86.711 Personal history of pulmonary embolism; Z79.891 Long term (current) use of opiate analgesic; Z79.899 Other long term (current) drug therapy; Z86.73 Personal history of transient ischemic attack (TIA), and cerebral infarction without residual deficits; Y92.89 Other specified places as the place of occurrence of the external cause; Z28.21 Immunization not carried out because of patient refusal
CPT/HCPCS: 10879

== ENCOUNTER 2021-04-23 20:25 | Emergency (ER) | payer OTHER ==
[~2021-04-23] VITALS: Ht 177.8 cm; Wt 95.3 kg
--- NOTE | ~2021-04-23 | EMS ---
[address] [address] EMS Patient Care Report Name: DENISE FELIX Room #: REG LEBRON Richter#: [id number] Admission: 04/23/21 Attend Phys: Discharge: Date of : 48 Report #: [id number] THIS REPORT FOR: //name// Report Transmitted: 04/23/2021 20:43 EMS Care Summary [place], [place]/[facility] Incident [id number] @ 04/23/2021 19:49 Incident Location [address] [place] [address] Patient DENISE FELIX Male, 71 Years 1950 Patient Address [address] [place] [address] Patient History Congestive Heart Failure (CHF),Chronic Obstructive Pulmonary Disease (COPD),Hypertension (HTN),Alzheimer's,Hyperlipidemia,TIA,Amputee,Atrial Fibrillation,Peripheral Vascular Disease,Constipation,Type 2 Diabetes,Coronary Artery Disease (CAD), Patient Allergies No known allergies, Patient Medications ASA, Amlodipine, Bisacodyl, Insulin, Lisinopril, Proair, Rosuvastatin, Tamsulosin, Trazodone, Humalog, Hydralazine, Gabapentin, Senna, Carvedilol, Finasteride, Donepezil, Cymbalta, Chief Complaint Abd pain with N/V Disposition Transported No Lights/[place] Dispatch Reason Sick Person Transported To [address] [place] [address] EMS Patient Care Report Name: DENISE FELIX Room #: REG M.R.#: [id number] Admission: 04/23/21 Attend Phys: Discharge: Date of : 48 Report #: [id number] Narrative Called for sick. upon arrival, pt c/o abd pain, N/V for 24 hours. He had a BM yesterday. He requests transport to [facility] for further eval & tx. Pt was moved to the EMS cot and loaded into the ambulance w/o incident. Vitals obtained x 2. Enroute: no changes. RR to the ER. Arrived: pt taken to #1 and moved to their bed w/o incident. pt care & report to ER staff. Initial Vitals @20:12P: 83,R: 16,BP: 227/113,Pain: 2/10,GCS: 15,CO: 1,SpO2: 98,Revised Trauma: 12, @20:15P: 82,R: 16,BP: 221/122,Pain: 2/10,GCS: 15,CO: 3,SpO2: 98,Revised Trauma: 12, Assessments @20:04MENTAL:Person Oriented,Place Oriented,Time Oriented,Event Oriented,SKIN:HEENT:Head/Face: No Abnormalities,LUNG SOUNDS:General: Vomiting,Left Lower: Distension,Right Upper: Other,Left Upper: Other,Right Lower: Distension,Left Upper: Distension,Right Upper: Distension,Right Lower: Other,General: Nausea,Left Lower: Other,ABDOMEN:General: Vomiting,Left Lower: Distension,Right Upper: Other,Left Upper: Other,Right Lower: Distension,Left Upper: Distension,Right Upper: Distension,Right Lower: Other,General: Nausea,Left Lower: Other,PELVIS//GI:No Abnormalities,EXTREMITIES:Right Leg: Other,Left Leg: Other,Left Arm: No Abnormalities,Right Arm: No Abnormalities,PULSE:Radial: 2+ Normal,NEURO: Impression Abdominal Pain Procedures @20:04ALS AssessmentResponse: UnchangedSucceeded@20:06StretcherResponse: Unchanged Timeline 19:48,Call Received 19:48,Dispatch Notified 19:49,Dispatched 19:51,En Route 20:03,On Scene 20:04,At Patient 20:04,ALS Assessment,Response: UnchangedSucceeded, 20:06,Stretcher,Response: Unchanged 20:12,BP: 227/113 M,PULSE: 83,RR: 16 R,SPO2: 98 Ox,ETCO2: ,BG: ,PAIN: 2,GCS: 15, 20:13,Depart Scene 20:15,BP: 221/122 M,PULSE: 82,RR: 16 R,SPO2: 98 Ox,ETCO2: ,BG: ,PAIN: 2,GCS: [facility] [address] [place] [address] EMS Patient Care Report Name: DENISE FELIX Room #: REG Neelam#: [id number] Admission: 04/23/21 Attend Phys: Discharge: Date of : 48 Report #: [id number] 15, 20:22,At Destination 20:45,Call Closed Disclaimer v1.1 Copyright 2020 [employer] This EMS Care Summary contains data elements from the applicable legal record (which may be displayed differently). It is designed to provide pertinent information for the following purposes: continuity of care, clinical quality, and state data reporting. The complete legal record is available to ED staff and administrators of the receiving hospital in [employer]'s Patient Tracker. All data is provided "as is."
[~2021-04-23 20:25] MED LIST changes: +ADULT LOW DOSE81 MG PO; +HYDROCODON-ACE1 EAC7 PO; +MIRALAX119 GM PO; +PANTOPRAZOLE SO40 M1 PO
[2021-04-23 21:07] LABS: ABSOLUTE NEUTROPHILS 9.1 thou/uL (1.4-8.2); BASOPHILS 0.8 % (0.0-2.0); EOSINOPHILS 0.2 % (0.0-3.0); HEMATOCRIT 46.2 % (42.0-52.0); LYMPHOCYTES 19.5 % (24.0-44.0); MCH 26.7 pg (26.0-34.0); MCHC 32.5 g/dL (28.0-37.0); MCV 82.3 fL (80.0-100.0); MONOCYTES 9.5 % (1.0-8.0); PLATELET COUNT 265 thou/uL (150-400); RBC 5.61 mil/uL (4.50-6.00); RDW 16.4 % (10.5-14.5)
[2021-04-23 21:11] LABS: CALCIUM 9.3 mg/dL (8.5-10.1); CREATININE 1.3 mg/dL (0.7-1.3); POTASSIUM 4.3 mmol/L (3.5-5.1)
[2021-04-23 21:21] LABS: ALBUMIN 3.4 g/dL (3.4-5.0); TOTAL BILIRUBIN 0.5 mg/dL (0.2-1.0); TOTAL PROTEIN 8.4 g/dL (6.4-8.2)
[2021-04-23] MEDS ORDERED: DULCOLAX10 MG RECTAL (21:51)
[2021-04-23] MEDS ORDERED: MIRALAX17 G1 PO (22:03)
[2021-04-23] MEDS ORDERED: HUMALOG100 UNIT/2 SUBQ (22:04)
[2021-04-23] MEDS ORDERED: LIDOCAINE 2%2 %/5 GM TOP (22:06)
[2021-04-23] MEDS ORDERED: NIZORAL A-D125 ML TOP (22:06)
[2021-04-23] MEDS ORDERED: LISINOPRIL10 MG PO (22:07)
[2021-04-23] MEDS ORDERED: LINZESS145 MCG PO (22:07)
[2021-04-23] MEDS ORDERED: LYRICA100 MG PO (22:07)
[2021-04-23] MEDS ORDERED: TRAZODONE HCL50 MG PO (22:19)
[2021-04-24 02:15] LABS: URINE BILIRUBIN NEGATIVE (Negative); URINE BLOOD 1+ (Negative); URINE CLARITY CLEAR; URINE COLOR YELLOW; URINE GLUCOSE-RANDOM* 1+ (Negative); URINE KETONES TRACE (Negative); URINE LEUKOCYTES-REFLEX NEGATIVE (Negative); URINE NITRITE-REFLEX NEGATIVE (Negative); URINE PROTEIN (DIPSTICK) 2+ (Negative); URINE UROBILINOGEN 0.2 E.U./dl (0.2-1.0)
[2021-04-24 02:26] LABS: BACTERIA-REFLEX 1-9 Few /HPF (None Seen); CASTS None Seen /LPF (None Seen); CRYSTALS None Seen /LPF (None Seen); MUCUS 0-3 Light strn/LPF (None Seen); SQUAMOUS 0-3 Few /LPF (0-3); URINE RBC 3-10 Few /HPF (NONE SEEN); URINE WBC-REFLEX 0-5 Rare /HPF (0-5)
[2021-04-24] MEDS ORDERED: NORCO5 PO (02:40)
[2021-04-24] MEDS ORDERED: MIRALAX119 GM PO (02:42)
[2021-04-24 05:30] VITALS: BP 142/76
--- NOTE | 2021-04-25 12:24 | EKG ---
[facility] [place] [address] ELECTROCARDIOGRAM REPORT Name: DENISE FELIX [facility] [id number] Admission: 04/23/21 Attend Phys: Discharge: 04/24/21 Date of : 48 Report #: [id number] [facility] ED Test Date: 2021-04-23 Test Time: 22:01:05 Pat Name: DENISE FELIX Department: Room: Gender: Quality Manager: KAYLEY : 1950 Requested By: Thelma Faustin Order Number: [id number] MD: Kadeem Beckett Measurements Intervals Halfway Rate: 80 P: 55 SC: 179 QRS: -16 QRSD: 112 T: 110 QT: 423 QTc: 488 Interpretive Statements Sinus rhythm Probable left atrial enlargement LVH with IVCD and secondary repol abnrm Inferior infarct, old Compared to ECG 09/15/2019 15:44:33 First degree AV block no longer present Electronically Signed On 04-25-2021 12:23:58 CDT by Kadeem Beckett [email or web address] <ELECTRONICALLY SIGNED> By: Kadeem Beckett MD, [facility] 09/06/05 1223 00 00 Kadeem Beckett MD, [facility] /EPI
== END 2021-04-24 05:32 | disposition home or self-care (01) ==
LOC: ER 20:25
PROVIDERS: Nurse Practitioner Family
DX: R11.2 Nausea with vomiting, unspecified (principal); Z20.822 Contact with and (suspected) exposure to COVID-19; R10.84 Generalized abdominal pain; K21.9 Gastro-esophageal reflux disease without esophagitis; E78.5 Hyperlipidemia, unspecified; E11.40 Type 2 diabetes mellitus with diabetic neuropathy, unspecified; Z86.73 Personal history of transient ischemic attack (TIA), and cerebral infarction without residual deficits; Z79.891 Long term (current) use of opiate analgesic; Z79.82 Long term (current) use of aspirin; Z79.899 Other long term (current) drug therapy; Z79.51 Long term (current) use of inhaled steroids; Z79.4 Long term (current) use of insulin; Z79.1 Long term (current) use of non-steroidal anti-inflammatories (NSAID)

== ENCOUNTER 2021-07-07 12:38 | Emergency (ER) | payer OTHER ==
[~2021-07-07] VITALS: Ht 147.3 cm; Wt 108.9 kg
--- NOTE | ~2021-07-07 | EMS ---
[address] [address] EMS Patient Care Report Name: DENISE FELIX Room #: DEP LEBRON Richter#: [id number] Admission: 07/07/21 Attend Phys: Discharge: 07/07/21 Date of : 48 Report #: [id number] THIS REPORT FOR: //name// Report Transmitted: 07/16/2021 17:37 EMS Care Summary [place], [place]/[facility] Incident [id number] @ 07/07/2021 12:04 Incident Location [address] [place] [address] Patient DENISE FELIX Male, 71 Years 1950 Patient Address [address] [place] [id number] Patient History Congestive Heart Failure (CHF),Chronic Obstructive Pulmonary Disease (COPD),Diabetes,Hypertension (HTN),Alzheimer's,Hyperlipidemia,TIA,Amputee,Atrial Fibrillation,Peripheral Vascular Disease,Constipation,Type 2 Diabetes,Coronary Artery Disease (CAD), Patient Allergies No known allergies, Patient Medications Cymbalta, Rosuvastatin, Amlodipine, Lisinopril, Donepezil, Proair, Humalog, Senna, Insulin, Finasteride, Gabapentin, Trazodone, ASA, Tamsulosin, Bisacodyl, Hydralazine, Carvedilol, Chief Complaint Dehydration Disposition Transported No Lights/[place] Dispatch Reason Sick Person Transported To [address] [place] [address] EMS Patient Care Report Name: DENISE FELIX Room #: DEP M.R.#: [id number] Admission: 07/07/21 Attend Phys: Discharge: 07/07/21 Date of : 48 Report #: [id number] Narrative Nurse at [facility] stated that Pt has had nausea and vomiting along with diarrhea x [address] wanted Pt sent out for further care , tx and evaluated for possible dehydration. Pt stated he has been feeling sick with nausea but has not vomited or had diarrhea since early this A.M. Pt stated he has been able to eat and keep fluids down today but was only able to keep fluids down the last couple of days and has not attempted to eat. Pt is a GCS 15 with no other complaints. Pt found in bed in [facility] with staff with him, Pt is with no signs of distress noted by EMS on eval. Pt has had nausea and vomiting along with diarrhea for the last couple of days and today is the first time Pt stated he has had a apatite and felt like eating and drinking fluids down and inside of him as well. Pt is with a GCS 15 with no other complaints noted and received by RN in ER. Initial Vitals @12:25P: 96,R: 16,BP: 156/88,Pain: 8/10,GCS: 15,Glucose: 231,Revised Trauma: 12, @12:40P: 90,R: 16,Pain: 8/10,GCS: 15,Revised Trauma: 12, Assessments @12:18MENTAL:Place Oriented,Event Oriented,Time Oriented,Person Oriented,SKIN:HEENT:Head/Face: No Abnormalities,Neck/Airway: No Abnormalities,LUNG SOUNDS:General: No Abnormalities,ABDOMEN:General: No Abnormalities,PELVIS//GI:No Abnormalities,EXTREMITIES:Left Leg: Other,Right Leg: Other,Capillary Refill: Right Upper: < 2 Sec,Left Arm: No Abnormalities,Right Arm: No Abnormalities,PULSE:Radial: 2+ Normal,NEURO:@12:41MENTAL:Person Oriented,Time Oriented,Event Oriented,Place Oriented,SKIN:HEENT:Head/Face: No Abnormalities,Neck/Airway: No Abnormalities,LUNG SOUNDS:General: No Abnormalities,ABDOMEN:General: No Abnormalities,PELVIS//GI:No Abnormalities,EXTREMITIES:Left Leg: Other,Right Leg: Other,Capillary Refill: Left Upper: < 2 Sec,Left Arm: No Abnormalities,Right Arm: No Abnormalities,PULSE:Radial: 2+ Normal,NEURO:No Abnormalities, Impression Generalized Weakness Procedures @12:18 ALS Assessment Response: UnchangedSucceeded Timeline 12:02,Call Received 12:02,Dispatch Notified [address] [address] EMS Patient Care Report Name: DENISE FELIX Room #: MATTY Richter#: [id number] Admission: 07/07/21 Attend Phys: Discharge: 07/07/21 Date of : 48 Report #: [id number] 12:04,Dispatched 12:07,En Route 12:15,On Scene 12:18,At Patient 12:18,ALS Assessment,Response: UnchangedSucceeded, 12:25,BP: 156/88 M,PULSE: 96,RR: 16 R,SPO2: Ox,ETCO2: ,B,PAIN: 8,GCS: 15, 12:28,Depart Scene 12:40,BP: 154/ M,PULSE: 90,RR: 16 R,SPO2: Ox,ETCO2: ,BG: ,PAIN: 8,GCS: 15, 12:42,At Destination 12:56,Call Closed Disclaimer v1.1 Copyright 2020 [employer] This EMS Care Summary contains data elements from the applicable legal record (which may be displayed differently). It is designed to provide pertinent information for the following purposes: continuity of care, clinical quality, and state data reporting. The complete legal record is available to ED staff and administrators of the receiving hospital in [employer]'s Patient Tracker. All data is provided "as is."
[~2021-07-07 12:38] MED LIST changes: +DULCOLAX10 MG RECTAL; +HUMALOG100 UNIT/2 SUBQ; +LIDOCAINE 2%2 %/5 GM TOP; +LISINOPRIL10 MG PO; +LYRICA100 MG PO; +MIRALAX17 G1 PO; +NIZORAL A-D125 ML TOP; +NORCO5 PO; +TRAZODONE HCL50 MG PO
[2021-07-07 13:34] LABS: ABSOLUTE NEUTROPHILS 7.6 thou/uL (1.4-8.2); BASOPHILS 1.6 % (0.0-2.0); EOSINOPHILS 0.6 % (0.0-3.0); HEMATOCRIT 40.6 % (42.0-52.0); HEMOGLOBIN 12.8 gm/dL (14.0-18.0); LYMPHOCYTES 25.5 % (24.0-44.0); MCH 26.8 pg (26.0-34.0); MCHC 31.5 g/dL (28.0-37.0); MCV 85.2 fL (80.0-100.0); MONOCYTES 6.7 % (1.0-8.0); PLATELET COUNT 244 thou/uL (150-400); POLYS 65.6 % (36.0-66.0); RBC 4.76 mil/uL (4.50-6.00); RDW 15.7 % (10.5-14.5); WBC 11.5 thou/uL (4.0-11.0)
[2021-07-07 13:46] LABS: CALCIUM 8.6 mg/dL (8.5-10.1); CREATININE 1.2 mg/dL (0.7-1.3); POTASSIUM 3.9 mmol/L (3.5-5.1)
[2021-07-07] MEDS ORDERED: CYMBALTA30 MG PO (13:52)
[2021-07-07 13:53] LABS: ALBUMIN 3.2 g/dL (3.4-5.0); DIRECT BILIRUBIN 0.1 mg/dL (<0.1-0.2); TOTAL BILIRUBIN 0.5 mg/dL (0.2-1.0); TOTAL PROTEIN 7.6 g/dL (6.4-8.2)
[2021-07-07] MEDS ORDERED: ARICEPT10 M1 PO (13:54)
[2021-07-07] MEDS ORDERED: HUMALOG100 UNIT/1 SUBQ (13:55)
[2021-07-07] MEDS ORDERED: HYDRALAZINE 10M10 MG PO (13:56)
[2021-07-07] MEDS ORDERED: LEVEMIR FL100 UNIT/2 SUBQ (14:00)
--- NOTE | 2021-07-07 14:21 | EKG ---
[place] [address] [facility] [place] [address] ELECTROCARDIOGRAM REPORT Name: DENISE FELIX Room #: [facility] [id number] Admission: 07/07/21 Attend Phys: Discharge: Date of : 48 Report #: [id number] [facility] ED Test Date: 2021-07-07 Test Time: 13:30:36 Pat Name: DENISE FELIX Department: Room: Gender: M Editorial Assistant: LUZ : 1950 Requested By: Brandon Ortega Order Number: [id number] MD: Yao Armijo Measurements Intervals [place] Rate: 85 P: 65 ND: 209 QRS: -6 QRSD: 104 T: 110 QT: 393 QTc: 468 Interpretive Statements Sinus rhythm LVH with secondary repolarization abnormality Compared to ECG 04/23/2021 22:01:05 ST (T wave) deviation now present Intraventricular conduction delay no longer present Myocardial infarct finding no longer present Electronically Signed On 07-07-2021 14:20:55 [employer]STRUMENT[employer] 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
[2021-07-07] MEDS ORDERED: ONDANSETRON ODT4 MG PO (14:35)
[2021-07-07 16:24] LABS: URINE BILIRUBIN NEGATIVE (Negative); URINE BLOOD NEGATIVE (Negative); URINE CLARITY CLEAR; URINE COLOR YELLOW; URINE GLUCOSE-RANDOM* 1+ (Negative); URINE KETONES NEGATIVE (Negative); URINE LEUKOCYTES-REFLEX NEGATIVE (Negative); URINE NITRITE-REFLEX NEGATIVE (Negative); URINE PROTEIN (DIPSTICK) TRACE (Negative); URINE SPECIFIC GRAVITY 1.015 (1.005-1.035)
[2021-07-07 18:14] LABS: SQUAMOUS 0-3 Few /LPF (0-3)
[2021-07-07 18:15] LABS: BACTERIA-REFLEX 1-9 Few /HPF (None Seen); CASTS None Seen /LPF (None Seen); CRYSTALS None Seen /LPF (None Seen); MUCUS None Seen strn/LPF (None Seen); URINE RBC None Seen /HPF (NONE SEEN); URINE WBC-REFLEX 0-5 Rare /HPF (0-5)
[2021-07-07 20:37] VITALS: BP 187/77
== END 2021-07-07 20:44 ==
LOC: ER 12:38
PROVIDERS: Nurse Practitioner
DX: K80.50 Calculus of bile duct without cholangitis or cholecystitis without obstruction (principal); E11.40 Type 2 diabetes mellitus with diabetic neuropathy, unspecified; N40.0 Benign prostatic hyperplasia without lower urinary tract symptoms; E78.5 Hyperlipidemia, unspecified; I25.10 Atherosclerotic heart disease of native coronary artery without angina pectoris; G30.9 Alzheimer's disease, unspecified; F02.80 Dementia in other diseases classified elsewhere, unspecified severity, without behavioral disturbance, psychotic disturbance, mood disturbance, and anxiety; I11.9 Hypertensive heart disease without heart failure; Z86.73 Personal history of transient ischemic attack (TIA), and cerebral infarction without residual deficits; Z79.899 Other long term (current) drug therapy; Z79.4 Long term (current) use of insulin